=== PATIENT | female | born 1945 | race Caucasian/White ===

== ENCOUNTER 2021-06-14 07:46 | Day surgery (SDC) | payer OTHER ==
[~2021-06-14] VITALS: Ht 157.5 cm; Wt 59.0 kg
[~2021-06-14 07:46] MED LIST: LISI20 PO; OXYACE5T PO; PRAV20 PO
== END 2021-06-14 10:17 | disposition home or self-care (01) ==
LOC: ORSCSDS 07:46
PROVIDERS: Ophthalmology
PROC: 08RJ3JZ Replacement of Right Lens with Synthetic Substitute, Percutaneous Approach (ICD-10-PCS; principal; 2021-06-14 09:00)
DX: H25.11 Age-related nuclear cataract, right eye (principal); I10 Essential (primary) hypertension; Z79.899 Other long term (current) drug therapy
CPT/HCPCS: J2001; J2250; J3301; J7040; J7120; V2632

== ENCOUNTER 2021-07-05 09:40 | Day surgery (SDC) | payer OTHER ==
[~2021-07-05] VITALS: Ht 157.5 cm; Wt 58.7 kg
--- NOTE | 2021-07-05 10:34 | NUR ---
07/05/21 1034 TINO PELAEZ TETRACAINE DROP INSTILLED AT 1021
== END 2021-07-05 12:00 | disposition home or self-care (01) ==
LOC: ORSCSDS 09:40
PROVIDERS: Ophthalmology
PROC: 08RK3JZ Replacement of Left Lens with Synthetic Substitute, Percutaneous Approach (ICD-10-PCS; principal; 2021-07-05 11:00)
DX: H25.12 Age-related nuclear cataract, left eye (principal); I10 Essential (primary) hypertension; Z79.899 Other long term (current) drug therapy
CPT/HCPCS: J2001; J2250; J3010; J3301; J7040; V2632